=== PATIENT | female | born 1965 | race Caucasian/White ===

== ENCOUNTER 2024-04-22 12:02 | Outpatient (CLI) | payer BC | END 2024-04-22 12:03 | disposition home or self-care (01) | LOC: CSHMRI 12:02 | PROVIDERS: ATTEND Neurological Surgery | DX: M50.022 Cervical disc disorder at C5-C6 level with myelopathy (principal); M50.023 Cervical disc disorder at C6-C7 level with myelopathy; M47.12 Other spondylosis with myelopathy, cervical region | CPT/HCPCS: 72141 ==